=== PATIENT | male | born 1985 | race Caucasian/White ===

== ENCOUNTER 2020-08-11 21:02 | Emergency (ER) | payer SELFPAY ==
[~2020-08-11] VITALS: Ht 175.3 cm; Wt 72.6 kg
[2020-08-11] MEDS ORDERED: HYDROCODON-ACE1 EA10 PO (22:40)
[2020-08-11] MEDS ORDERED: DOXYCYCLINE HY100 MG PO (22:40)
== END 2020-08-11 22:57 | disposition home or self-care (01) ==
LOC: ED 21:02
DX: L02.211 Cutaneous abscess of abdominal wall (principal)
CPT/HCPCS: 10060; 87070; 87077; 87186; 87205; 99283-25

== ENCOUNTER 2020-08-13 15:49 | Emergency (ER) | payer SELFPAY ==
[~2020-08-13] VITALS: Ht 175.3 cm; Wt 72.6 kg
[~2020-08-13 15:49] MED LIST: DOXYCYCLINE HY100 MG PO; HYDROCODON-ACE1 EA10 PO
--- OUTSIDE RECORDS SUMMARY | 2020-08-13 15:52 | XMS ---
PreManage Notification: DANIELLE DUKES [employer] Events No recent Security Events currently on file CRITERIA MET - [facility] - 2 Visits in 30 Days CARE PROVIDERS There are no care providers on record at this time. Adilson has no Care Guidelines for this patient. [facility] VISIT COUNT (12 MO.) 2 [facility] TOTAL 2 NOTE: Visits indicate total known visits. ED/C VISIT TRACKING (12 MO.) 08/13/2020 15:49 [facility] [place] TYPE: Emergency COMPLAINT: - WOUND CHECK 08/11/2020 21:03 [facility] OR TYPE: Emergency COMPLAINT: - BUG BITE INPATIENT VISIT TRACKING (12 MO.) No inpatient visits to display in this time frame [email or web address]
== END 2020-08-13 16:29 | disposition home or self-care (01) ==
LOC: ED 15:49
DX: Z48.817 Encounter for surgical aftercare following surgery on the skin and subcutaneous tissue (principal)
CPT/HCPCS: 99282